=== PATIENT | female | born 1975 | race Caucasian/White ===

== ENCOUNTER 2018-11-05 22:19 | Emergency (ER) | payer OTHER ==
[~2018-11-05] VITALS: Ht 177.8 cm; Wt 145.2 kg
[~2018-11-05 22:19] MED LIST: Bactrim Ds Tab1 EACH PO
== END 2018-11-06 00:47 | disposition left against medical advice (07) ==
LOC: ER 22:19
DX: Z53.21 Procedure and treatment not carried out due to patient leaving prior to being seen by health care provider (principal)

== ENCOUNTER 2019-02-06 12:20 | Emergency (ER) | payer SELFPAY ==
[~2019-02-06] VITALS: Ht 177.8 cm; Wt 136.1 kg
[2019-02-06] MEDS ORDERED: ONDA4ODT MM (20:00)
[2019-02-06] MEDS ORDERED: MOTION RELIEF25 MG PO (20:00)
== END 2019-02-06 14:22 | disposition home or self-care (01) ==
LOC: EDSEX 12:20 → ER 12:20
DX: F15.129 Other stimulant abuse with intoxication, unspecified (principal); F17.210 Nicotine dependence, cigarettes, uncomplicated
CPT/HCPCS: 99284

== ENCOUNTER 2019-02-06 18:18 | Emergency (ER) | payer SELFPAY ==
[~2019-02-06] VITALS: Ht 177.8 cm; Wt 136.1 kg
[2019-02-06] MEDS ORDERED: MOTION RELIEF25 MG PO (20:00)
[2019-02-06] MEDS ORDERED: ONDA4ODT MM (20:00)
== END 2019-02-06 20:15 | disposition home or self-care (01) ==
LOC: ER 18:18
DX: F15.90 Other stimulant use, unspecified, uncomplicated (principal); R11.2 Nausea with vomiting, unspecified; R42 Dizziness and giddiness; F17.210 Nicotine dependence, cigarettes, uncomplicated
CPT/HCPCS: 93005; 93010; 99283-25